=== PATIENT | male | born 1995 ===

== ENCOUNTER 2017-05-20 02:57 | Emergency (ER) | payer SELFPAY ==
[2017-05-20] MEDS ORDERED: Tetanus/Diphtheria Toxoids 0.5 ml Syringe IM ONE (03:09)
[2017-05-20] MEDS ORDERED: Lidocaine 1% Inj (20ml) INFIL ONE (03:10)
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
[2017-05-20] MEDS ORDERED: Bacitracin 500 Units/gm Oint Foilpak UD ONE (03:35)
[2017-05-20] MEDS ORDERED: Bacitracin 500 Units/gm Oint Foilpak UD TOP ONE (03:36)
[2017-05-20 04:27] VITALS: BP 132/80; PULSE 84; RESP 20; TEMP 99.5
[2017-05-20 04:32] VITALS: O2SAT 100
== END 2017-05-20 04:40 | disposition home or self-care (01) ==
LOC: C.ER 02:57
DX: S51.812A Laceration without foreign body of left forearm, initial encounter (principal); X99.1XXA Assault by knife, initial encounter; Y92.810 Car as the place of occurrence of the external cause; Z23 Encounter for immunization

== ENCOUNTER 2017-05-26 18:45 | Emergency (ER) | payer MEDICAID ==
[2017-05-26 18:54] VITALS: BP 140/81; PULSE 68; RESP 16; TEMP 97.3; O2SAT 99
--- NOTE | 2017-05-26 19:44 | C.PDOC ---
History Of Present Illness The patient is here for suture removal. Patient is 7 days s/p laceration repair on the left arm. The patient has no pain, fever, or other complaints. Time Seen by Provider: 05/26/17 19:13 Chief Complaint (Nursing): Suture/Staple Removal History Per: Patient History/Exam Limitations: no limitations Current Symptoms Are (Timing): Gone Recent travel outside of the [place]: No Past Medical History Reviewed: Historical Data, Nursing Documentation, Vital Signs Vital Signs: Last Vital Signs Temp 97.3 F L 05/26/17 18:51 Pulse 68 05/26/17 18:51 Resp 16 05/26/17 18:51 BP 140/81 05/26/17 18:51 Pulse Ox 99 05/26/17 19:44 - Medical History PMH: No Chronic Diseases Family History: States: No Known Family Hx - Social History Hx Alcohol Use: Yes Hx Substance Use: No - Immunization History Hx Tetanus Toxoid Vaccination: No Hx Influenza Vaccination: No Hx Pneumococcal Vaccination: No Review Of Systems Constitutional: Negative for: Fever, Chills Musculoskeletal: Negative for: Arm Pain Skin: Negative for: Rash, Lesions Neurological: Negative for: Weakness, Numbness Physical Exam - Physical Exam Appears: Non-toxic, No Acute Distress Skin: Normal Color, Warm, Other ((+) healing wound to the left forearm) Head: Atraumatic, Normacephalic Eye(s): bilateral: Normal Inspection Oral Mucosa: Moist Neck: Normal ROM, Supple Extremity: Normal ROM, No Tenderness, Capillary Refill (< 2 sec), No Swelling Pulses: Left Radial: Normal, Right Radial: Normal Neurological/Psych: Oriented x3, Normal Speech, Normal Motor Gait: Steady ED Course And Treatment O2 Sat by Pulse Oximetry: 99 (on RA) Pulse Ox Interpretation: Normal Medical Decision Making Medical Decision Making: One of the three sutures were removed, but wound is slightly opened. Patient was instructed that the wound is not ready for suture removal. Disposition - Disposition Referrals: [facility] [Outside] Disposition: HOME/ ROUTINE Disposition Time: 19:43 Condition: GOOD Additional Instructions: Come back Monday to remove sutures. Instructions: Stitches Removal (ED) Forms: [employer] (Indonesian) - Clinical Impression Clinical Impression: Removal of suture
== END 2017-05-26 19:49 | disposition home or self-care (01) ==
LOC: C.ER 18:45
DX: Z48.02 Encounter for removal of sutures (principal)

== ENCOUNTER 2017-05-30 02:17 | Emergency (ER) | payer SELFPAY ==
[2017-05-30 02:28] VITALS: BP 150/79; PULSE 81; RESP 16; TEMP 97.7; O2SAT 100
--- NOTE | 2017-05-30 02:59 | C.PDOC ---
History Of Present Illness Pt is here for suture removal to left arm placed on 05/20/17, denies any c/o at this time Time Seen by Provider: 05/30/17 02:30 Chief Complaint (Nursing): Suture/Staple Removal History Per: Patient History/Exam Limitations: no limitations Location Of Injury: Left: Forearm Past Medical History Vital Signs: Last Vital Signs Temp 97.7 F 05/30/17 02:25 Pulse 81 05/30/17 02:25 Resp 16 05/30/17 02:25 BP 150/79 05/30/17 02:25 Pulse Ox 100 05/30/17 02:25 - Medical History PMH: No Chronic Diseases Family History: States: Unknown Family Hx - Social History Hx Alcohol Use: Yes Hx Substance Use: No - Immunization History Hx Tetanus Toxoid Vaccination: Yes Hx Influenza Vaccination: No Hx Pneumococcal Vaccination: No Review Of Systems Skin: Positive for: Other (sutured wound) Physical Exam - Physical Exam Appears: Well, Non-toxic Eye(s): bilateral: Normal Inspection Extremity: No Swelling, No Other (2 sutures on left forearm wound- wound appears well healed, no erythem, no drainage) ED Course And Treatment O2 Sat by Pulse Oximetry: 100 Pulse Ox Interpretation: Normal Progress Note: 2 sutures removed from left forearm, wound is well healed, no dehiscence, no bleeding. Wound care instructions were discussed Disposition - Disposition Referrals: [facility] [Outside] Disposition: HOME/ ROUTINE Disposition Time: 03:03 Condition: STABLE Additional Instructions: Please follow up in clinic Return to ER if worse Instructions: Stitches Removal (ED) Forms: [employer] (Swedish) Print Language: NORTH KOREAN - Clinical Impression Clinical Impression: Removal of suture
== END 2017-05-30 03:06 | disposition home or self-care (01) ==
LOC: C.ER 02:17
DX: Z48.02 Encounter for removal of sutures (principal)